=== PATIENT | male | born 1980 | race Caucasian/White ===

== ENCOUNTER 2021-11-21 12:11 | Emergency (ER) | payer MEDICAID ==
[~2021-11-21] VITALS: Ht 172.7 cm; Wt 103.0 kg
[2021-11-21 12:19] VITALS: BP 161/82
[2021-11-21] MEDS ORDERED: ACYC400T14 PO (12:26)
--- NOTE | 2021-11-21 14:28 | NUR ---
Patient discharged with v/s stable. Written and verbal after care instructions ABOUT GENITAL HERPES given and explained. Patient alert, oriented and verbalized understanding of instructions. Ambulatory with steady gait. All questions addressed prior to discharge. ID band removed. Patient advised to follow up with PMD. Rx of ACYCLOVIR given. Patient educated on indication of medication including possible reaction and side effects. Opportunity to ask questions provided and answered. PT SEEN BY JENS FONTENOT, NO NURSING INTERVENTIONS PROVIDED.
[2021-11-23 09:06] LABS: HEPATITIS B SURFACE ANTIGEN Negative (Negative)
== END 2021-11-21 14:28 | disposition home or self-care (01) ==
LOC: MED 12:11
DX: A60.00 Herpesviral infection of urogenital system, unspecified (principal); Z11.3 Encounter for screening for infections with a predominantly sexual mode of transmission; Z79.899 Other long term (current) drug therapy
CPT/HCPCS: 36415; 86592; 86803; 87340; 87529; 99283